=== PATIENT | male | born 1975 | race Asian ===

== ENCOUNTER 2017-06-13 19:49 | Emergency (ER) | payer OTHER | END 2017-06-13 21:14 | disposition home or self-care (01) | LOC: ED 19:49 | DX: R51 Headache (principal) | CPT/HCPCS: 99281 ==

== ENCOUNTER 2023-02-02 15:43 | Emergency (ER) | payer OTHER ==
[~2023-02-02] VITALS: Ht 185.4 cm; Wt 113.4 kg
[2023-02-02 16:10] VITALS: BP 138/66; TEMP 98.6
== END 2023-02-02 18:29 | disposition home or self-care (01) ==
LOC: ED 15:43
DX: Z53.21 Procedure and treatment not carried out due to patient leaving prior to being seen by health care provider (principal)
CPT/HCPCS: 99281